=== PATIENT | female | born 1965 | race Caucasian/White ===

== ENCOUNTER 2019-04-11 08:52 | Emergency (ER) | payer OTHER ==
[2019-04-11 08:58] VITALS: RESP 18; TEMP 98
[2019-04-11] MEDS ORDERED: SODIUM CHLORIDE 0.9% 1,000 ML IV STA ×2 (09:15)
[2019-04-11] MEDS ORDERED: MECLIZINE 12.5 MG TAB PO STA (09:17)
[2019-04-11] MEDS ORDERED: diphenhydrAMINE 50 MG/ML 1 ML VIAL IVP STA (09:17)
[2019-04-11] MEDS ORDERED: METOCLOPRAMIDE 5 MG/ML 2 ML VIAL IVP STA (09:17)
--- NOTE | 2019-04-11 09:20 | ED ---
General Adult HPI - General Chief complaint: Dizziness Stated complaint: vertigo Time Seen by Provider: 04/11/19 08:59 Source: patient, RN notes reviewed, old records reviewed Mode of arrival: ambulatory Limitations: no limitations - History of Present Illness Initial comments: Patient is a 53-year-old female who presents emergency department today with onset of dizziness upon awakening. Patient reportedly went to bed last night relatively well. Patient states she woke up today and complaining of severe dizziness, nausea. Patient states it feels like her brain is spinning. Patient states that she has had a history of MS. She denies any history of vertigo. Patient reports that she is unsteady on her feet. Patient reports that she called her daughter today at 7:30 to pick her up due to this persistent dizziness. She denies any significant headache at this time. Patient states that she was unable to walk without severe difficulty feeling she was falling over. She reports episodes of dry heaving and vomiting.Patient denies any recen t fever, chills, shortness of breath, chest pain, back pain, abdominal pain, numbness or tingling, dysuria or hematuria, constipation or diarrhea, headaches or visual changes, or any other current symptoms - Related Data Allergies Allergy/AdvReac Type Severity Reaction Status Date / Time No Known Allergies Allergy Verified 04/11/19 08:53 Review of Systems ROS Statement: Those systems with pertinent positive or pertinent negative responses have been documented in the HPI. ROS Other: All systems not noted in ROS Statement are negative. Past Medical History Additional Past Medical History / Comment(s): MS History of Any Multi-Drug Resistant Organisms: None Reported Past Surgical History: Section, Cholecystectomy, Tonsillectomy Additional Past Surgical History / Comment(s): polyp on ovary removed Past Psychological History: No Psychological Hx Reported Smoking Status: Never smoker Past Alcohol Use History: None Reported Past Drug Use History: None Reported General Exam - General Exam Comments Initial Comments: This is a 53-year-old female. Alert and oriented 3. Limitations: no limitations General appearance: alert Head exam: Present: atraumatic, normocephalic, normal inspection Eye exam: Present: normal appearance, PERRL, EOMI, nystagmus (Nystagmus noted on exam.), other (Normal TMs bilaterally.). Absent: scleral icterus, conjunctival injection, periorbital swelling ENT exam: Present: normal exam, mucous membranes moist Neck exam: Present: normal inspection. Absent: tenderness, meningismus, lymphadenopathy Respiratory exam: Present: normal lung sounds bilaterally. Absent: respiratory distress, wheezes, rales, rhonchi, stridor Cardiovascular Exam: Present: regular rate, normal rhythm, normal heart sounds. Absent: systolic murmur, diastolic murmur, rubs, gallop, clicks GI/Abdominal exam: Present: soft, normal bowel sounds. Absent: distended, tenderness, guarding, rebound, rigid Extremities exam: Present: normal inspection, full ROM, normal capillary refill. Absent: tenderness, pedal edema, joint swelling, calf tenderness Back exam: Present: normal inspection Neurological exam: Present: alert, oriented X3, CN II-XII intact Expanded Patient oriented to: Present: person, place, time Speech: Present: fluid speech Cerebellar function: Finger to Nose: Abnormal Right (Patient had some overshooting on her finger to nose exam.. ) Upper motor neuron: Pronator Drift: Normal Sensory exam: Upper Extremity Light Touch: Normal, Lower Extremity Light Touch: Normal Motor strength exam: RUE: 5, LUE: 5, RLE: 5, LLE: 5 Eye Response: (4) open spontaneously Motor Response: (6) obeys commands Verbal Response: (5) oriented [place] Total: 15 Psychiatric exam: Present: normal affect, normal mood Course Vital Signs 04/11/19 04/11/19 04/11/19 08:54 11:07 11:30 Temperature 98 F Pulse Rate 56 L 58 L 61 Respiratory 18 18 18 Rate Blood Pressure 129/83 148/100 146/99 O2 Sat by Pulse 99 100 98 Oximetry 04/11/19 11:41 Temperature Pulse Rate Respiratory Rate Blood Pressure 140/83 O2 Sat by Pulse Oximetry - Reevaluation(s) Reevaluation #1: Patient is reevaluated after multiple doses of Antivert and now be receiving Versed she is continued complain of dizziness feeling unsteady on her feet. Needed assistance with ambulating to and from the bathroom. I discussed the results of normal CTs with Patient. Discussed possibility of cerebellar infarct undetected. Patient was informed likely transfer for neurology. She is agreeable to this. Medical Decision Making - Medical Decision Making 53-year-old female presented today for evaluation with chief complaint of a onset of dizziness upon awakening at 7:30 this morning. Sent persistent nausea, and unsteady gait. On neurological exam she did have abnormal finger to nose test with some overshooting. She has significant nystagmus on exam. Patient does have a history of MS. Lab work was reviewed and unremarkable. EKG shows no acute changes. CT of the brain without contrast was completedand the lesions. CT ROGERS had a neck was completed. This is negative for any other acute changes. 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 On reevaluation after Reglan Benadryl meclizine and percent she's continuing to have nystagmus and persistent nausea. Patient's case was discussed with Dr. Duncan, recommends transfer for neurological evaluation. I discussed case with Dr. Cook who is agreeable to transfer. Patient was given aspirin. - Lab Data Result diagrams: 04/11/19 09:20 04/11/19 09:20 Lab Results 04/11/19 04/11/19 04/11/19 Range/Units 09:20 09:20 09:20 WBC 4.6 (3.8-10.6) k/uL RBC 5.49 H (3.80-5.40) m/uL Hgb 13.4 (11.4-16.0) gm/dL Hct 41.7 (34.0-46.0) % MCV 76.1 L (80.0-100.0) fL MCH 24.4 L (25.0-35.0) pg MCHC 32.1 (31.0-37.0) g/dL RDW 16.4 H (11.5-15.5) % Plt Count 264 (150-450) k/uL Neutrophils % 59 % Lymphocytes % 28 % Monocytes % 6 % Eosinophils % 4 % Basophils % 1 % Neutrophils # 2.7 (1.3-7.7) k/uL Lymphocytes # 1.3 (1.0-4.8) k/uL Monocytes # 0.3 (0-1.0) k/uL Eosinophils # 0.2 (0-0.7) k/uL Basophils # 0.1 (0-0.2) k/uL Anisocytosis Slight Microcytosis Slight PT 10.2 (9.0-12.0) sec INR 0.9 (<1.2) Sodium 141 (137-145) mmol/L Potassium 3.9 (3.5-5.1) mmol/L Chloride 108 H (98-107) mmol/L Carbon Dioxide 23 (22-30) mmol/L Anion Gap 10 mmol/L BUN 15 (7-17) mg/dL Creatinine 0.67 (0.52-1.04) mg/dL Est GFR (CKD-EPI)AfAm >90 (>60 ml/min/1.73 sqM) Est GFR (CKD-EPI)NonAf >90 (>60 ml/min/1.73 sqM) Glucose 108 H (74-99) mg/dL Calcium 9.4 (8.4-10.2) mg/dL Total Bilirubin 0.5 (0.2-1.3) mg/dL AST 22 (14-36) U/L ALT 24 (9-52) U/L Alkaline Phosphatase 70 (38-126) U/L Total Protein 7.3 (6.3-8.2) g/dL Albumin 4.2 (3.5-5.0) g/dL Urine Color Urine Appearance (Clear) Urine pH (5.0-8.0) Ur Specific [place] (1.001-1.035) Urine Protein (Negative) Urine Glucose (UA) (Negative) Urine Ketones (Negative) Urine Blood (Negative) Urine Nitrite (Negative) Urine Bilirubin (Negative) Urine Urobilinogen (<2.0) mg/dL Ur Leukocyte Esterase (Negative) 04/11/19 Range/Units 11:00 WBC (3.8-10.6) k/uL RBC (3.80-5.40) m/uL Hgb (11.4-16.0) gm/dL Hct (34.0-46.0) % MCV (80.0-100.0) fL MCH (25.0-35.0) pg MCHC (31.0-37.0) g/dL RDW (11.5-15.5) % Plt Count (150-450) k/uL Neutrophils % % Lymphocytes % % Monocytes % % Eosinophils % % Basophils % % Neutrophils # (1.3-7.7) k/uL Lymphocytes # (1.0-4.8) k/uL Monocytes # (0-1.0) k/uL Eosinophils # (0-0.7) k/uL Basophils # (0-0.2) k/uL Anisocytosis Microcytosis PT (9.0-12.0) sec INR (<1.2) Sodium (137-145) mmol/L Potassium (3.5-5.1) mmol/L Chloride (98-107) mmol/L Carbon Dioxide (22-30) mmol/L Anion Gap mmol/L BUN (7-17) mg/dL Creatinine (0.52-1.04) mg/dL Est GFR (CKD-EPI)AfAm (>60 ml/min/1.73 sqM) Est GFR (CKD-EPI)NonAf (>60 ml/min/1.73 sqM) Glucose (74-99) mg/dL Calcium (8.4-10.2) mg/dL Total Bilirubin (0.2-1.3) mg/dL AST (14-36) U/L ALT (9-52) U/L Alkaline Phosphatase (38-126) U/L Total Protein (6.3-8.2) g/dL Albumin (3.5-5.0) g/dL Urine Color Light Yellow Urine Appearance Clear (Clear) Urine pH 6.5 (5.0-8.0) Ur Specific [place] 1.009 (1.001-1.035) Urine Protein Negative (Negative) Urine Glucose (UA) Negative (Negative) Urine Ketones Negative (Negative) Urine Blood Negative (Negative) Urine Nitrite Negative (Negative) Urine Bilirubin Negative (Negative) Urine Urobilinogen <2.0 (<2.0) mg/dL Ur Leukocyte Esterase Negative (Negative) When compared to previous EKG there are: no significant change Interpretation: normal EKG - Radiology Data Radiology results: report reviewed EKG performed at 9:33 AM shows sinus bradycardia otherwise normal EKG. Ventricular rate of 51 bpm. MN interval is 56 ms. QS duration is 92 ms. QT QTc is 490/[address] Angio head and neck: No hemodynamically significant stenosis in either carotid system. Normal CT of the [place]. Degenerative changes within the spine. Had urgent Oddi of the thyroid gland and this could be further assessed with ultrasound. Normal computed tomography scan of the brain without contrast. Disposition Clinical Impression: Nystagmus, Vertigo, Cerebellar ataxia Disposition: DC/TRNS INTERMEDIATE CARE FAC Condition: Stable Referrals: Devang Vu DO [Primary Care Provider] - 1-2 days Time of Disposition: 12:50 - Out of Hospital Transfer - Req. Specs Out of Hospital Transfer - Requested Specifics: Other Emergency Center ([facility])
[2019-04-11 09:38] LABS: Anisocytosis Slight; Basophils # (A) 0.1 k/uL (0-0.2); Basophils % (A) 1 %; Eosinophils # (A) 0.2 k/uL (0-0.7); Eosinophils % (A) 4 %; HCT 41.7 % (34.0-46.0); HGB 13.4 gm/dL (11.4-16.0); Lymphocytes # (A) 1.3 k/uL (1.0-4.8); Lymphocytes % (A) 28 %; MCH 24.4 pg (25.0-35.0); MCHC 32.1 g/dL (31.0-37.0); MCV 76.1 fL (80.0-100.0); Mean Platelet Volume 7.3; Microcytosis Slight; Monocytes # (A) 0.3 k/uL (0-1.0); Monocytes % (A) 6 %; Neutrophils # (A) 2.7 k/uL (1.3-7.7); Neutrophils % (A) 59 %; Platelet Count 264 k/uL (150-450); RBC 5.49 m/uL (3.80-5.40); RDW 16.4 % (11.5-15.5); WBC 4.6 k/uL (3.8-10.6)
[2019-04-11 09:41] LABS: INR 0.9 (<1.2); Prothrombin Time 10.2 sec (9.0-12.0)
[2019-04-11 09:46] LABS: ALT 24 U/L (9-52); AST 22 U/L (14-36); African American GFR (CKD) >90 (>60 ml/min/1.73 sqM); Albumin 4.2 g/dL (3.5-5.0); Alkaline Phosphatase 70 U/L (38-126); Anion Gap 10 mmol/L; Blood Urea Nitrogen 15 mg/dL (7-17); Calcium 9.4 mg/dL (8.4-10.2); Carbon Dioxide 23 mmol/L (22-30); Chloride 108 mmol/L (98-107); Glucose 108 mg/dL (74-99); Potassium 3.9 mmol/L (3.5-5.1); Sodium 141 mmol/L (137-145); Total Bilirubin 0.5 mg/dL (0.2-1.3); Total Protein 7.3 g/dL (6.3-8.2)
--- NOTE | 2019-04-11 10:09 | XR ---
EXAMINATION TYPE: XR chest 2V DATE OF EXAM: 04/11/2019 HISTORY: dizziness. REFERENCE: NONE. FINDINGS: The lungs are clear. Pleural spaces are clear. Heart size is normal. IMPRESSION: NORMAL CHEST.
--- NOTE | 2019-04-11 10:10 | CT ---
EXAMINATION TYPE: CT brain wo con DATE OF EXAM: 04/11/2019 COMPARISON: NONE HISTORY: Nystagmus CT DLP: 1099.4 mGycm Automated exposure control for dose reduction was used. FINDINGS: Central structures are midline. There is no evidence of hydrocephalus. No acute focal lesion, mass ef fect or midline shift is seen. I do not see evidence of intracranial blood. Visualized portions of the paranasal sinuses and mastoids are clear. IMPRESSION: NORMAL CT SCAN OF THE BRAIN.
[2019-04-11] MEDS ORDERED: MIDAZOLAM (PF) 2 MG/2 ML VIAL IV ONE (10:33)
[2019-04-11 11:10] LABS: Appearance,Urine Clear (Clear); Bilirubin,Urine Negative (Negative); Blood,Urine Negative (Negative); Color,Urine Light Yellow; Glucose,Urine (UA) Negative (Negative); Ketones,Urine Negative (Negative); Leukocyte Esterase,Urine Negative (Negative); Nitrite,Urine Negative (Negative); PH, Urine 6.5 (5.0-8.0); Protein,Urine Negative (Negative); Specific Gravity,Urine 1.009 (1.001-1.035); Urobilinogen,Urine <2.0 mg/dL (<2.0)
--- NOTE | 2019-04-11 11:37 | CT ---
EXAMINATION TYPE: CT angio head neck DATE OF EXAM: 04/11/2019 HISTORY: sudden onset dizziness. History of MS. COMPARISON: Previous CT scan of the brain of earlier today. CT DLP: 435.8 mGycm. Automated Exposure Control for Dose Reduction was Utilized. TECHNIQUE: CTA scan of the neck is performed with IV Contrast, patient injected with 65 mL of Isovue 370, axial images are obtained, coronal and sagittal reformatted images are reviewed. Three-D recons tructed images are created on an independent workstation and reviewed. FINDINGS: Visualized portions of the lungs are clear. Visualized portions of the paranasal sinuses and mastoids are clear. There is a reversal of the normal cervical lordosis which may be positional. Atlantoaxial relationshi ps are normal. The there is no significant atheromatous calcification of either carotid bulb. There is no evidence o f a hemodynamically significant stenosis in either carotid system. CTA of the [place] is within normal limits. Both anterior cerebral arteries are patent. Ther e is normal arborization of the middle cerebral arteries bilaterally. The posterior circulation appea rs unremarkable. IMPRESSION: 1. NO HEMODYNAMICALLY SIGNIFICANT STENOSIS IN EITHER CAROTID SYSTEM. 2. NORMAL CTA OF THE [place]. 3. DEGENERATIVE CHANGES WITHIN THE SPINE. 4. HETEROGENEITY OF THE THYROID GLAND. THIS COULD BE FURTHER ASSESSED WITH ULTRASOUND.
[2019-04-11] MEDS ORDERED: ASPIRIN 81 MG PO STA (12:48)
[2019-04-11 12:50] VITALS: BP 135/90; PULSE 57
--- NOTE | 2019-04-14 01:38 | CDI ---
Documentation Clarification OP Dear Amrita WILKINSON PA-C, PAC Please provide any procedure done related to midazolam administered. Thank you, Jeff Avalos Suppository Molding Machine Operator If you have any questions, please contact Clinical Rehabilitation Specialist at [phone] [facility]
== END 2019-04-11 13:30 ==
LOC: EC 08:52
DX: H55.00 Unspecified nystagmus (principal); G11.9 Hereditary ataxia, unspecified; R11.2 Nausea with vomiting, unspecified; Z90.49 Acquired absence of other specified parts of digestive tract; Z98.890 Other specified postprocedural states
CPT/HCPCS: 36415; 93005; 80053; 85025; 85610; 81003; 71046; 70496; 70450; 70498; 99285; 96374; 96375 ×2; 96361 ×4; J1200; J2765; Q9967; J2250